=== PATIENT | male | born 1950 | race Caucasian/White ===

== ENCOUNTER 2019-05-02 08:34 | Inpatient (IN) | payer MEDICARE, OTHER ==
[~2019-05-02] VITALS: Ht 182.9 cm; Wt 81.3 kg
[2019-05-02 08:56] LABS: Basophils # (auto) 0.1 uL; Basophils % (auto) 0.4 % (0.0-2.0); Eosinophils # (auto) 0 uL; Hematocrit 48.5 % (41.0-53.0); Hemoglobin 16.7 g/dL (13.5-17.5); Lymphocytes # (auto) 0.5 uL; Lymphocytes % (auto) 4.2 % (10.0-50.0); Mean Corpuscular Hemoglobin 32.8 pg (28.0-32.0); Mean Corpuscular Hgb Conc. 34.5 g/dL (32.0-36.0); Monocytes # (auto) 0.4 uL; Monocytes % (auto) 3.6 % (0.0-12.0); Neutrophils # (auto) 11.5 uL; Neutrophils % (auto) 91.8 % (37.0-80.0); Platelet Count (auto) 287 10^3/uL (140-450); Red Blood Cells 5.11 10^6/uL (4.5-5.90); Red Cell Distribution Width 12.1 % (11.8-14.3); White Blood Cell 12.5 10^3/uL (4.4-10.8)
[2019-05-02 09:07] LABS: Alanine Aminotransferase 21 U/L (16-61); Albumin 4.2 g/dL (3.4-5.0); Anion Gap 5 (5-15); Aspartate Aminotransferase 20 U/L (15-37); BUN/Creatinine Ratio 13.8; Blood Urea Nitrogen 15 mg/dL (7-18); Calcium 9.5 mg/dL (8.5-10.1); Carbon Dioxide 29 mmol/L (21-32); Chloride 106 mmol/L (98-107); GFR African American 87 mL/min; GFR Non-African American 72 mL/min; Glucose 157 mg/dL (74-106); Potassium 4.7 mmol/L (3.5-5.1); Sodium 140 mmol/L (136-145)
[2019-05-02 09:10] LABS: INR 1.02 (0.9-1.15); Partial Thromboplastin Time 23.6 sec (23.64-32.05)
[2019-05-02 09:11] LABS: Alkaline Phosphatase 105 U/L (45-117); Bilirubin, Total 0.9 mg/dL (0.2-1.0); Total Protein 7.9 g/dL (6.4-8.2)
[2019-05-02] MEDS ORDERED: ONDANSETRON HCL 4 MG/2 ML VIAL IV ONE (09:30)
[2019-05-02] MEDS ORDERED: MORPHINE SULF INJ 2 MG/ML SYRINGE 1ML IV ONE (09:30)
[2019-05-02] MEDS ORDERED: SODIUM CHLORIDE 0.9% 1,000 ML IV ONE ×2 (10:06)
[2019-05-02] MEDS ORDERED: MECLIZINE HCL 25 MG TAB PO ONE (10:15)
[2019-05-02] MEDS ORDERED: LORazepam 2MG/ML-1ML VIAL ONE (12:51)
[2019-05-02] MEDS ORDERED: LORazepam 2MG/ML-1ML VIAL IV ONE (13:00)
[2019-05-02 13:26] LABS: Urine Bacteria NONE SEEN /hpf (None Seen); Urine Blood TRACE /uL (Negative); Urine Specific Gravity 1.023 (1.001-1.035); Urine WBC 1 /hpf (0 - 3)
[2019-05-02] MEDS ORDERED: MORPHINE SULF INJ 2 MG/ML SYRINGE 1ML IV PRN (14:45)
[2019-05-02] MEDS ORDERED: LACTULOSE 20Gm/30ML SOLN PO PRN (14:45)
[2019-05-02] MEDS ORDERED: LORazepam 0.5 MG TAB PO PRN (14:45)
[2019-05-02] MEDS ORDERED: LABETALOL HCL 5 MG/ML ML 20ML VIAL IV PRN (14:45)
[2019-05-02] MEDS ORDERED: PROMETHAZINE HCL 25 MG/ML 1ML IV PRN (14:45)
[2019-05-02] MEDS ORDERED: TEMAZEPAM 15 MG CAP PO PRN (14:45)
[2019-05-02] MEDS ORDERED: DEXTROSE (50%) 50ML SYRG IV PRN (14:45)
[2019-05-02] MEDS ORDERED: ACETAMINOPHEN 500 MG TAB PO PRN (14:45)
[2019-05-02] MEDS ORDERED: NITROGLYCERIN 0.4 MG SL TAB SL PRN (14:45)
[2019-05-02] MEDS ORDERED: traMADol HCL 50 MG TAB PO PRN (14:45)
[2019-05-02] MEDS: SODIUM CHLORIDE 0.9% 1,000 ML IV SCH (15:01)
[2019-05-02 15:59] LABS: Alcohol, Urine < 3.0 mg/dL (0-5); Amphetamine Screen, Urine NEGATIVE (NEGATIVE); Barbiturate Scree,Urine NEGATIVE (NEGATIVE); Benzodiazephine Screen, Urine NEGATIVE (NEGATIVE); Cannabinoid Screen, Urine NEGATIVE (NEGATIVE); Cocaine Screen, Urine NEGATIVE (NEGATIVE); Opiate Scree,Urine NEGATIVE (NEGATIVE); Phencyclidine Screen, Urine NEGATIVE (NEGATIVE)
--- NOTE | 2019-05-02 17:00 | NUR ---
Telemetry admit from ER ROB RODRÍGUEZ admitted to Telemetry unit after SBAR received. Patient oriented to RENATA PADILLA RN, unit, room, bed, and unit policies regarding patient care and visiting hours. Patient now on continuous telemetry monitoring, tele box # 39 and telemetry reading on arrival to unit is NORMAL SINUS AT 74 BPM. Patient placed on bedside oxygen, weighed by bedscale and encouraged to call if they need something. All questions and concerns addressed, patient verbalized understanding.
[2019-05-02 17:10] VITALS: BP 114/65
--- NOTE | 2019-05-02 19:25 | NUR ---
Opening Shift Note Assumed care of patient, awake and alert. No S/S of distress/SOB or pain. Instructed on POC and to call for assist PRN, will continue to monitor for changes Q1hr and PRN.
[2019-05-02 22:00] VITALS: BP 114/65
[2019-05-02] MEDS: ATORVASTATIN 20 MG TAB PO SCH (22:58)
[2019-05-02] MEDS: ACCU-CHEK COMFORT CURVE STRIP VI SCH (22:58)
[2019-05-03] MEDS: SODIUM CHLORIDE 0.9% 1,000 ML IV SCH ×2 (03:02→12:45)
[2019-05-03 04:00] VITALS: BP 128/72
[2019-05-03 06:58] LABS: Basophils # (auto) 0 uL; Basophils % (auto) 0.5 % (0.0-2.0); Eosinophils # (auto) 0 uL; Eosinophils % (auto) 0.6 % (0.0-7.0); Hematocrit 40.7 % (41.0-53.0); Hemoglobin 14.1 g/dL (13.5-17.5); Lymphocytes # (auto) 1.4 uL; Lymphocytes % (auto) 18.7 % (10.0-50.0); Mean Corpuscular Hgb Conc. 34.8 g/dL (32.0-36.0); Mean Corpuscular Volume 94.8 fL (80.0-100.0); Monocytes # (auto) 0.6 uL; Monocytes % (auto) 8.3 % (0.0-12.0); Neutrophils # (auto) 5.2 uL; Neutrophils % (auto) 71.9 % (37.0-80.0); Platelet Count (auto) 207 10^3/uL (140-450); Red Blood Cells 4.29 10^6/uL (4.5-5.90); Red Cell Distribution Width 11.8 % (11.8-14.3); White Blood Cell 7.2 10^3/uL (4.4-10.8)
[2019-05-03] MEDS: ACCU-CHEK COMFORT CURVE STRIP VI SCH ×4 (07:00→21:28)
[2019-05-03 09:22] VITALS: BP 135/84
[2019-05-03] MEDS: PANTOPRAZOLE 40 MG TAB PO SCH (10:01)
[2019-05-03] MEDS: ASPirin 81 mg TAB PO SCH (10:01)
[2019-05-03] MEDS: ENOXAPARIN SOD 40 MG/0.4 ML SYRINGE SC SCH (10:02)
[2019-05-03 10:56] LABS: Folate (Folic Acid) 14.59 ng/mL (5.38-24)
[2019-05-03 12:43] VITALS: BP 127/78
[2019-05-03] MEDS ORDERED: LORazepam 2MG/ML-1ML VIAL IV ONE (13:15)
[2019-05-03 14:29] VITALS: BP_SYST 109; BP_SYST 123; BP_SYST 125; BP_DIAS 72; BP_DIAS 77; BP_DIAS 82
[2019-05-03 16:58] VITALS: BP 136/81
--- NOTE | 2019-05-03 19:15 | NUR ---
Opening Shift Note Report received from day shift RN. Assumed care of patient. Patient sitting in bed awake. Alert and oriented x4. No S/S of distress/SOB noted and patient denies pain at this time. Patient reports still having some dizziness but has significantly improved. Instructed on POC and to call for assist PRN, call light within reach, will continue to monitor for changes Q1hr and PRN.
--- NOTE | 2019-05-03 21:19 | NUR ---
DR RANDALL AT BEDSIDE DISCUSSING PLAN OF CARE WITH THE PATIENT.
[2019-05-03] MEDS: ATORVASTATIN 20 MG TAB PO SCH (21:26)
[2019-05-03 21:50] VITALS: BP 120/72
[2019-05-04] MEDS: SODIUM CHLORIDE 0.9% 1,000 ML IV SCH (04:57)
[2019-05-04 05:09] VITALS: BP 144/85
[2019-05-04] MEDS: ACCU-CHEK COMFORT CURVE STRIP VI SCH ×3 (06:47→17:00)
--- NOTE | 2019-05-04 07:09 | NUR ---
CLOSING NOTE ENDORSED CARE TO DAY SHIFT RN. PATIENT LAYING IN BED. NO S/S OF DISTRESS OR SOB NOTED AND PATIENT DENIES PAIN AT THIS TIME.
[2019-05-04 07:45] LABS: Calcium 8.6 mg/dL (8.5-10.1); Magnesium 2.3 mg/dL (1.6-2.6); Potassium 3.7 mmol/L (3.5-5.1)
[2019-05-04 07:48] LABS: BUN/Creatinine Ratio 14.7
[2019-05-04 09:00] VITALS: BP 148/91
[2019-05-04] MEDS: ASPirin 81 mg TAB PO SCH (09:56)
[2019-05-04] MEDS: ENOXAPARIN SOD 40 MG/0.4 ML SYRINGE SC SCH (09:56)
[2019-05-04] MEDS: PANTOPRAZOLE 40 MG TAB PO SCH (09:56)
[2019-05-04 13:00] VITALS: BP 149/69
--- NOTE | 2019-05-04 13:40 | NUR ---
NUTRITION ASSESSMENT NOTES Please refer to link notes of nutrition screen form filed under the intervention section of the plan of care for further details. Est. Needs: 2050 kcal to 2450 kcal (25-30 kcal/kgBW), 81 gms to 97 gms pro (1.0-1.2 gms/kgBW). Will continue to monitor pertinent labs and reassess nutrient need prn Thank you. Addendum: 05/04/19 at [address] Amended: Links added.
[2019-05-04 17:00] VITALS: BP 114/73
--- NOTE | 2019-05-04 18:24 | NUR ---
PT DISCHARGED PER DR. RIVERA, PENDING DR. RANDALL APPROVAL. PER TELEPHONE, DR RANDALL STATED HE WANTED TO SEE PT PRIOR TO DISCHARGE. PT ANXIOUS TO GO HOME, ASKING TO LEAVE. DR. RANDALL PAGED.
--- NOTE | 2019-05-04 19:50 | NUR ---
DR BOYKIN IN TO SEE PATIENT. CLEARED FOR DISCHARGED.
--- NOTE | 2019-05-04 19:55 | NUR ---
DISCHARGED: PATIENT DISCHARGED. IV REMOVED AND SECURED WITH COBAND AND GAUZE. PATIENT TOLERATED WELL. 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 PATIENT GIVEN AND REVIEWED DISCHARGE PAPERWORK AND DISCHARGE INSTRUCTIONS. PATIENT VERBALIZED UNDERSTANDING. DOCUMENTS SIGNED. NO S/S OF DISTRESS SOB NOTED. PATIENT TAKEN PERSONAL BELONGINGS HOME.
[2019-05-07 05:06] LABS: Methylmalonic Acid 147 nmol/L (0-378)
== END 2019-05-04 19:55 | disposition home or self-care (01) | DRG 149 ==
LOC: ER 08:34 → TELE 08:35 → TELE-CENTR 17:09
PROVIDERS: ADMIT Internal Medicine; ATTEND Internal Medicine
DX: R42 Dizziness and giddiness (principal); E11.65 Type 2 diabetes mellitus with hyperglycemia; D72.829 Elevated white blood cell count, unspecified; F41.9 Anxiety disorder, unspecified; K44.9 Diaphragmatic hernia without obstruction or gangrene; M19.90 Unspecified osteoarthritis, unspecified site; F17.200 Nicotine dependence, unspecified, uncomplicated; K21.9 Gastro-esophageal reflux disease without esophagitis; R97.20 Elevated prostate specific antigen [PSA]; Z82.49 Family history of ischemic heart disease and other diseases of the circulatory system; Z83.3 Family history of diabetes mellitus; Z88.7 Allergy status to serum and vaccine; Z90.89 Acquired absence of other organs
CPT/HCPCS: 36415; 70450; 70551; 80048; 80053; 80061; 80307; 81001; 82550; 82607; 82746; 82962; 83036; 83090; 83735; 84443; 84484; 85025; 85379; 85610; 85652; 85730; 87086; 93005; 93306; 93886; 94761; 96361; 96374; 96375; G0378; J2405